=== PATIENT | male | born 1960 ===

== ENCOUNTER 2018-05-08 08:00 | Outpatient (CLI) | payer BC ==
--- NOTE | 2018-05-08 11:02 | Fluoroscopy Report ---
MODIFIED BARIUM SWALLOW History: dysphagia. Findings: Video radiography was provided by the radiologist for speech therapy to assess the swallowing mechanism. 1 fluoroscopic image was captured. Impression: Successful modified barium swallow.
== END 2018-05-08 08:01 | disposition home or self-care (01) ==
LOC: PT 08:00
PROVIDERS: ATTEND Otolaryngology
DX: R13.12 Dysphagia, oropharyngeal phase (principal); I10 Essential (primary) hypertension
CPT/HCPCS: 74230